=== PATIENT | female | born 1980 | race Asian ===

== ENCOUNTER 2021-12-31 21:32 | Emergency (ER) | payer SELFPAY ==
[~2021-12-31] VITALS: Ht 167.6 cm; Wt 61.8 kg
[2021-12-31 21:36] VITALS: BP 100/54
== END 2022-01-01 01:19 | disposition left against medical advice (07) ==
LOC: M ED 21:32
DX: Z53.21 Procedure and treatment not carried out due to patient leaving prior to being seen by health care provider (principal)